=== PATIENT | female | born 1960 | race Caucasian/White ===

== ENCOUNTER → 2016-08-04 | Outpatient (REF) | LOC: LAB 10:26 | DX: E11.9 Type 2 diabetes mellitus without complications (principal); I10 Essential (primary) hypertension ==

== ENCOUNTER → 2017-09-16 | Outpatient (CLI) | payer SELFPAY ==
[2017-09-16 08:20] LABS: BUN/CREATININE RATIO 23.5 (6.0-26.0); CALCIUM 9.3 mg/dL (8.4-10.2); POTASSIUM 5.3 mmol/L (3.6-5.0); TOTAL BILIRUBIN 0.4 mg/dL (0.2-1.3); TOTAL PROTEIN 7.4 g/dL (6.3-8.2)
== END ==
LOC: LAB 07:45
PROVIDERS: Nurse Practitioner Family
DX: E11.9 Type 2 diabetes mellitus without complications (principal); I10 Essential (primary) hypertension; E78.5 Hyperlipidemia, unspecified

== ENCOUNTER → 2018-02-22 | Outpatient (CLI) | payer SELFPAY | LOC: LAB 11:17 | DX: Z11.2 Encounter for screening for other bacterial diseases (principal); K21.9 Gastro-esophageal reflux disease without esophagitis ==

== ENCOUNTER → 2021-10-14 | Outpatient (CLI) | payer SELFPAY ==
[2021-10-14 09:15] LABS: ALBUMIN 4.2 g/dL (3.4-4.8); POTASSIUM 4.4 mmol/L (3.5-5.1)
[2021-10-14 09:16] LABS: CALCIUM 9.6 mg/dL (8.3-10.5)
[2021-10-14 09:17] LABS: TOTAL PROTEIN 7.5 g/dL (6.2-8.1)
[2021-10-14 09:19] LABS: TOTAL BILIRUBIN 0.5 mg/dL (0.2-1.2)
== END ==
LOC: LAB 08:52
PROVIDERS: Registered Nurse
DX: E11.9 Type 2 diabetes mellitus without complications (principal); E78.00 Pure hypercholesterolemia, unspecified

== ENCOUNTER → 2022-04-13 | Outpatient (CLI) | payer SELFPAY ==
[2022-04-13 11:38] LABS: ALBUMIN 4.1 g/dL (3.4-4.8); POTASSIUM 4.2 mmol/L (3.5-5.1)
[2022-04-13 11:39] LABS: CALCIUM 9.7 mg/dL (8.3-10.5)
[2022-04-13 11:40] LABS: TOTAL PROTEIN 7.3 g/dL (6.2-8.1)
[2022-04-13 11:42] LABS: TOTAL BILIRUBIN 0.5 mg/dL (0.2-1.2)
== END ==
LOC: LAB 11:15
PROVIDERS: Registered Nurse
DX: E11.9 Type 2 diabetes mellitus without complications (principal)

== ENCOUNTER → 2022-11-02 | Outpatient (CLI) | payer SELFPAY | LOC: LAB 10:58 | DX: E11.9 Type 2 diabetes mellitus without complications (principal) ==